=== PATIENT | male | born 1965 | race Caucasian/White ===

== ENCOUNTER 2021-04-03 11:55 | Day surgery (SDC) | payer BC ==
[2021-03-30 12:02] VITALS: BMI 32.3
[~2021-04-03 11:55] MED LIST: DEXAMETHASONE SOD PHOSPHATE 4 MG/ML 1 ML VIAL IV ONE; HYDROmorphone 0.5 MG/0.5 ML SYRINGE IVP PRN; LACTATED RINGERS 1,000 ML IV SCH; MIDAZOLAM 2 MG/2 ML VIAL IV PRN; Pre Op ABX Message 1 EACH MISC MISCELLANE ONE; SCOPOLAMINE 1.5MG/72HR PATCH TRANSDERM ONE
[2021-04-03] MEDS: ONDANSETRON 4 MG/2 ML VIAL IVP ONE ×2 (12:51→15:49)
[2021-04-03] MEDS ORDERED: LIDOCAINE 1% (10MG/ML) FOR IV START INTRADERMA ONE (12:51)
[2021-04-03] MEDS ORDERED: MIDAZOLAM 2 MG/2 ML VIAL ONE (13:34)
[2021-04-03] MEDS ORDERED: PROPOFOL 10 MG/ML 20 ML VIAL IV ONE (13:34)
[2021-04-03] MEDS ORDERED: fentaNYL (PF) 50 MCG/ML 2 ML AMP ONE (13:34)
[2021-04-03] MEDS ORDERED: LIDOCAINE 1% INJ 10MG/ML (20 ML MDV) ONE (13:34)
[2021-04-03] MEDS ORDERED: BUPIVACAINE (PF) 0.5% 30 ML VIAL INTRAARTIC ONE (13:40)
[2021-04-03] MEDS ORDERED: ceFAZolin 1,000 MG VIAL IVPB ONE (13:40)
[2021-04-03] MEDS ORDERED: BUPIVACAINE (PF) 0.5% 30 ML VIAL SQ ONE (14:44)
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
[2021-04-03] MEDS ORDERED: LACTATED RINGERS 1,000 ML IV ONE (15:19)
[2021-04-03 15:34] VITALS: RESP 16; TEMP 97.4
[2021-04-03] MEDS ORDERED: KETOROLAC 15 MG/ML 1 ML VIAL IVP ONE (15:49)
--- NOTE | 2021-04-03 15:49 | P.OP ---
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 X-rays indicated that there was soft flattening of the second metatarsal head and MRI confirmed fragmentation of the cartilage Operative Findings: There was complete, full-thickness degloving of the articular cartilage of the second metatarsal head Description of Procedure: The patient was evaluated in the preop area where the consent was reviewed and the affected extremity marked. The patient underwent a right knee arthroscopy initially with Dr. Maldonado. Once he completed the right knee arthroscopy, the drapes were taken down and removed and then the left leg was prepped for preparation for the left foot surgery. A well-padded tourniquet was placed on the left calf. Then 20 mL 0.25% Marcaine was injected as a posterior tibial nerve block and a forefoot block the left foot was then prepped and draped in usual manner. Attention was directed over the second metatarsal phalangeal joint where a lazy S incision was made. The incision was deepened down through the subcutaneous layer careful to identify, avoid, and retract any neurovascular structures and cauterize any bleeding vessels. Blunt dissection was continued down to the second metatarsal phalangeal joint capsule. The capsule was incised medial to the long extensor tendon and reflected subperiosteally to expose the base of the proximal phalanx of the second metatarsal head. The second digit was a plantar flexed to expose the second metatarsal head. The articular surface was inspected and noted to have been fully degloved with no attachment of the cartilage to the second metatarsal head. All this tissue was removed with Ronjair down to normal bleeding bone. Under fluoroscopic visualization the guidewire for the implant placement was driven into the second metatarsal head centrally and into the medullary canal. Fluoroscopy was used to make sure that was centrally located in the canal both on AP and lateral views. When the wire was in satisfactory position overdrill was performed. When the old overdrill was completed the screw was then placed through the wire and advanced into the metatarsal head. The depth of screw placement was increased by 2 mm for decompression. The reamer was then placed over the guidewire and reamed to its natural. On the implant. Any excessive bone surrounding the area of reaming was removed with a Antolin. The trial was then placed and was noted the proper size and position. The trial was removed and then the actual implant was then placed with the 3.0 markings facing dorsally. The implant was impacted into the base implant within the second metatarsal head. Position of the implant was checked under fluoroscopy. The second toe was taken through range of motion was noted that the motion at increased and there was no crepitus. The wound was then thoroughly irrigated with antibiotic saline. Capsular closure was done with 3-0 Vicryl. Subcu closure was done with 3-0 Monocryl. Skin closure was done with 30 Stratafix in a running subcuticular manner. Dermal glue was placed over the incision. Once dry Steri-Strips are placed across the incision, then an Arthrex jumpstart dressing, and then a bulky dry dressing. The tourniquet was released and capillary refill return to all digits on the left foot. The patient tolerated above procedure and anesthesia well and went to recovery with vital signs stable.
[2021-04-03 16:47] VITALS: BP 122/60; PULSE 99
== END 2021-04-03 18:03 | disposition home or self-care (01) ==
LOC: OR 11:55
PROVIDERS: ATTEND Orthopaedic Surgery
DX: S92.322K Displaced fracture of second metatarsal bone, left foot, subsequent encounter for fracture with nonunion (principal); M23.203 Derangement of unspecified medial meniscus due to old tear or injury, right knee; M17.11 Unilateral primary osteoarthritis, right knee; Z97.3 Presence of spectacles and contact lenses; F17.210 Nicotine dependence, cigarettes, uncomplicated
CPT/HCPCS: 29881; J2250; J1100; J2405; J0690; J2001; J3010; J1885; J2704; J1170